=== PATIENT | female | born 1950 | race Caucasian/White ===

== ENCOUNTER 2020-01-20 12:51 | Outpatient (CLI) | payer MEDICARE, OTHER ==
--- NOTE | 2020-01-20 13:51 | CT ---
Exam: Abdomen CT with and without contrast Pelvic CT with and without contrast HISTORY: Recurrent urinary tract infection. Gross hematuria COMPARISON: None TECHNIQUE: Abdomen and pelvic CT is performed with and without contrast following urogram protocol. C oronal reformatted images are submitted for interpretation FINDINGS: Lung bases: Chronic changes in the lower lobes Heart: Normal heart size. No significant pericardial fluid Aorta: Normal caliber aorta. No periaortic fat stranding Liver: Appropriate enhancement. No enhancing masses. Spleen: Appropriate enhancement Pancreas: Appropriate enhancement Adrenal glands: Symmetric enhancement Lymph nodes: No gastrohepatic, retrocrural or periportal lymphadenopathy Portal vein: Patent Gallbladder: Surgically absent gallbladder Kidneys: Noncontrast: No nephrolithiasis or significant perinephric fat stranding Contrast: Symmetric enhancement of the kidneys. No enhancing masses. Delayed: Symmetric excretion into a decompressed intrauterine extra renal collecting systems. No fill ing defects. No evidence of nephrolithiasis or ureterolithiasis. No evidence of hydronephrosis, hydroureter or periureteral fat stranding. Mesentery: No mass, nephropathy, free air or free fluid Alimentary canal: Limited evaluation due to lack of oral contrast administration. No evidence of martín l obstruction. The ileocecal junction is normal. Normal caliber appendix. Scattered fecal material in a nondistended/nondilated colon. Scattered diverticulosis, without evidence of diverticulitis. CT PELVIS: Reproductive organs and pelvis: Surgically absent uterus Urinary bladder: Normal mucosa.. No filling defects in the dependent portion of the urinary bladder w hich is opacified with contrast No lytic or blastic lesions in the osseous structures IMPRESSION: 1. No evidence of nephrolithiasis or obstructive uropathy 2. Symmetric enhancement kidneys. 3. No abnormality with regards to the visualized urinary bladder
== END 2020-01-20 12:52 | disposition home or self-care (01) ==
LOC: BICCT 12:51
PROVIDERS: ATTEND Urology
DX: N39.0 Urinary tract infection, site not specified (principal); R35.0 Frequency of micturition; N81.11 Cystocele, midline; Z87.448 Personal history of other diseases of urinary system
CPT/HCPCS: 36415; 74178; 80048; 81001; 82565; 87086

== ENCOUNTER 2020-03-13 12:37 | Outpatient (CLI) | payer MEDICARE, OTHER ==
--- NOTE | 2020-03-13 16:03 | MRI ---
MRI LUMBAR SPINE NONCONTRAST: DATE: 03/13/2020 HISTORY: 69-year-old female with left lumbar radiculopathy FINDINGS: 5 lumbar-type vertebrae. Mild loss of height with mild broad depressions of anterior superior endplates of T12 and L3, without bony retropulsion, and without bone marrow edema. No major spondylolisthesis. Conus medullaris terminates at upper L2. T12-L1: Broad-based central and bilateral paracentral disc herniation, plus retrolisthesis of T12 on L1, encroach upon ventral aspect of spinal canal, but does not cause significant central spinal canal stenosis. Mild bilateral neural foraminal stenosis. Mild to moderate disc space narrowing. L1-2:Disc space maintained. Minimal retrolisthesis of L1 on L2. Mild disc bulge. No central stenosis. Mild left neural foraminal stenosis. No right neural foraminal stenosis. L2-3:Moderate disc space narrowing. Modic type II and type III endplate changes. Broad disc bulge sig nificantly indents ventral aspect of thecal sac. No high-grade central spinal canal stenosis. Posterior epidural fat pad. Mild thecal sac stenosis. No significant neural foraminal stenosis despit e disc bulge encroachment. L3-4:Moderate disc space narrowing. Minimal retrolisthesis of L3 on L4. Mild disc bulge. No central s tenosis. No significant neural foraminal stenosis. L4-5:Mild-moderate disc space narrowing. Generous caliber of spinal canal and thecal sac. No high-gra de neural foraminal stenosis. Small right facet joint effusion. No high-grade facet DJD. L5-S1:Mild disc space narrowing. Generous caliber of spinal canal and thecal sac. No high-grade neura l foraminal stenosis. IMPRESSION: 1) old compression fractures with mild loss of height, of T12 and L3. 2) lumbar spondylosis consisting of multilevel mild and moderate degenerative disc disease. 3) no high-grade central spinal canal stenosis, high-grade neural foraminal stenosis, or high-grade f acet osteoarthrosis, at any level.
== END 2020-03-13 12:38 | disposition home or self-care (01) ==
LOC: TBSIIMAG 12:37
PROVIDERS: ATTEND Neurological Surgery
DX: M47.26 Other spondylosis with radiculopathy, lumbar region (principal); M51.16 Intervertebral disc disorders with radiculopathy, lumbar region
CPT/HCPCS: 72148

== ENCOUNTER 2022-09-17 16:13 | Outpatient (CLI) | payer MEDICARE, OTHER | END 2022-09-17 16:14 | disposition home or self-care (01) | LOC: BICRAD 16:13 | PROVIDERS: ATTEND Internal Medicine Rheumatology | DX: M25.551 Pain in right hip (principal); M16.11 Unilateral primary osteoarthritis, right hip ==

== ENCOUNTER 2023-06-24 15:36 | Outpatient (CLI) | payer MEDICARE, OTHER | END 2023-06-24 15:37 | disposition home or self-care (01) | LOC: BICRAD 15:36 | PROVIDERS: ATTEND Internal Medicine Rheumatology | DX: M25.562 Pain in left knee (principal); M17.12 Unilateral primary osteoarthritis, left knee; M25.462 Effusion, left knee ==

== ENCOUNTER 2023-09-17 07:06 | Day surgery (SDC) | payer MEDICARE, OTHER ==
[2023-09-15 13:39] VITALS: BMI 30.7
[2023-09-17] MEDS ORDERED: Lidocaine 1% PF 5 ML VIAL ONE ×2 (07:48→09:32)
[2023-09-17] MEDS ORDERED: Rocuronium Bromide 10 MG/ML (10ML VIAL) ONE ×2 (07:48→09:32)
[2023-09-17] MEDS ORDERED: PROPOFOL 20 ML ONE (07:49)
[2023-09-17] MEDS ORDERED: Midazolam HCl 2 mg/2 ml Vial ONE (08:31)
[2023-09-17] MEDS ORDERED: Thrombin 5000 UNITS/5 ML VIAL ONE (08:41)
[2023-09-17] MEDS ORDERED: Bupivacaine PF 0.5% 30 ML VIAL ONE (08:41)
[2023-09-17] MEDS ORDERED: EPINEPHrine 1 MG/ML VIAL ONE (08:41)
[2023-09-17] MEDS ORDERED: Vancomycin 1 GM VIAL ONE (08:41)
[2023-09-17] MEDS ORDERED: CEFAZOLIN 2 GM VIAL ONE ×2 (09:16→13:57)
[2023-09-17] MEDS ORDERED: Sodium Chloride 0.9% 100 ML ONE ×2 (09:16→13:57)
[2023-09-17] MEDS ORDERED: Dexamethasone 20 MG/5 ML VIAL ONE ×2 (09:32→10:55)
[2023-09-17] MEDS ORDERED: ePHEDrine Sulfate 50 MG/10 ML VIAL ONE ×2 (09:32→10:55)
[2023-09-17] MEDS ORDERED: NEOSTIGMINE 3 MG/3 ML SYR 3 MG/3 ML SYRINGE ONE ×2 (09:32→11:02)
[2023-09-17] MEDS ORDERED: Glycopyrrolate 0.2 MG/ML 5 ML SYRINGE ONE ×2 (09:32→10:55)
[2023-09-17] MEDS ORDERED: PROPOFOL 200 MG/20 ML VIAL ONE (09:32)
[2023-09-17] MEDS ORDERED: Ketorolac Tromethamine 30 MG/ML VIAL ONE ×2 (09:32→11:13)
[2023-09-17] MEDS ORDERED: Ondansetron PF 4 MG/2 ML Vial ONE ×2 (09:32→10:55)
[2023-09-17] MEDS ORDERED: fentaNYL PF 100 MCG/2 ML SYRINGE ONE ×2 (10:55→10:58)
[2023-09-17] MEDS ORDERED: MINERAL OIL/WHITE PETROLATUM 3.5 GM TUBE ONE (10:55)
[2023-09-17] MEDS ORDERED: HYDROmorphone 0.5 MG/0.5 ML SYRINGE ONE ×2 (11:42→11:54)
[2023-09-17] MEDS ORDERED: Fentanyl 250 MCG/5 ML VIAL ONE (11:42)
== END 2023-09-17 14:48 | disposition home or self-care (01) ==
LOC: SDC 07:06
PROVIDERS: ATTEND Neurological Surgery
PROC: 01NB0ZZ Release Lumbar Nerve, Open Approach (ICD-10-PCS; principal; 2023-09-17)
DX: M48.061 Spinal stenosis, lumbar region without neurogenic claudication (principal); M54.16 Radiculopathy, lumbar region; E03.9 Hypothyroidism, unspecified; E78.5 Hyperlipidemia, unspecified; I10 Essential (primary) hypertension; K21.9 Gastro-esophageal reflux disease without esophagitis; Z90.49 Acquired absence of other specified parts of digestive tract; Z90.710 Acquired absence of both cervix and uterus; Z87.891 Personal history of nicotine dependence; Z79.890 Hormone replacement therapy; Z79.899 Other long term (current) drug therapy
CPT/HCPCS: 63047; 93005; C1713; J0171; 93010; J1100; J1170; J1885; J2250; J2405; J2704; J3010; J3370; J3490; S0020